=== PATIENT | male | born 1950 | race African-American/Black ===

== ENCOUNTER 2017-11-23 17:59 | Emergency (ER) | payer OTHER ==
[~2017-11-23] VITALS: Ht 170.2 cm; Wt 122.4 kg
[2017-11-23 19:26] LABS: BASOPHIL (%) 0.4 % (0-1); EOSINOPHIL (%) 4.4 % (0-5); EOSINOPHIL COUNT 0.3 K/uL (0-0.3); HEMATOCRIT 41.9 % (38.0-50.0); HEMOGLOBIN 13.8 G/DL (12.5-16.6); IMMATURE GRANULOCYTE (%) 0.3 % (0.0-0.7); LYMPHOCYTE (%) 43.2 % (15-42); LYMPHOCYTE COUNT 2.9 K/uL (1.0-2.8); MCH 29.5 PG (29.0-34.0); MCHC 32.9 G/DL (30.0-36.0); MCV 89.5 FL (86-99); MONOCYTE (%) 12.3 % (3-12); MONOCYTE COUNT 0.8 K/uL (0-0.8); NEUTROPHIL (%) 39.4 % (45-76); NEUTROPHIL COUNT 2.7 K/uL (1.8-6.4); PLATELET COUNT 205 K/uL (156-360); RBC DIS.WIDTH-SD 42.4 % (39-53); RED BLOOD COUNT 4.68 M/uL (4.00-5.50); WHITE BLOOD COUNT 6.8 K/uL (4.1-10.2)
[2017-11-23 19:35] LABS: CHLORIDE 104 mEq/L (99-109); SODIUM 139 mEq/L (136-147)
[2017-11-23 19:36] LABS: GLUCOSE 116 mg/dL (70-99)
[2017-11-23 19:40] LABS: CREATININE 1.3 mg/dL (0.6-1.3)
[2017-11-23 19:41] LABS: UREA NITROGEN (BUN) 12 mg/dL (9-23)
[2017-11-23 19:42] LABS: GFR ESTIMATE (CALCULATED) 58 mL/min/ (58.99-99999)
[2017-11-23 19:47] LABS: TROP-I INTERPRETATION NEGATIVE; TROPONIN-I 0.05 ng/mL (0.0-0.30)
[2017-11-23] MEDS ORDERED: LISINOPRIL40 MG PO (21:16)
[2017-11-23] MEDS ORDERED: CLONIDINE HCL0.1 MG PO (21:16)
[2017-11-23 21:35] VITALS: BP 170/96
== END 2017-11-23 21:57 | disposition home or self-care (01) ==
LOC: EME 17:59
PROVIDERS: Emergency Medicine
DX: I10 Essential (primary) hypertension (principal); E11.9 Type 2 diabetes mellitus without complications; J44.9 Chronic obstructive pulmonary disease, unspecified; E78.5 Hyperlipidemia, unspecified; I25.2 Old myocardial infarction; F17.200 Nicotine dependence, unspecified, uncomplicated
CPT/HCPCS: 70450; 71045; 80048; 84484; 85025; 93005; 99281; 99285